=== PATIENT | female | born 1965 | race Caucasian/White ===

== ENCOUNTER 2019-07-26 12:44 | Emergency (ER) | payer BC, SELFPAY ==
[2019-07-26 12:59] VITALS: BP 148/78; PULSE 75; RESP 13; TEMP 36.6; O2SAT 99
[2019-07-26 13:23] LABS: Add Manual Diff / Slide Review NO; Basophils Absolute Auto 100 /uL (0-100); Eosinophils Absolute Auto 100 /uL (0-450); Eosinophils Percent Auto 1.7 % (2-4); Hematocrit 37.6 % (36-46); Hemoglobin 12.9 g/dL (12.0-16.0); Lymphocytes Absolute Auto 1400 /uL (1100-4500); Lymphocytes Percent Auto 17.6 % (25-40); Mean Corpuscular HGB Conc 34.3 % (30-36); Mean Corpuscular Hemoglobin 31.9 PG (26-34); Mean Corpuscular Volume 93.2 fL (80-100); Monocytes Absolute Auto 600 /uL (0-900); Monocytes Percent Auto 7.1 % (3-14); Neutrophils Absolute Auto 5700 /uL (1500-7000); Neutrophils Percent Auto 72.6 % (50-75); Platelet Count 291 X10^3/uL (150-400); Red Blood Cell Count 4.04 X10^6/uL (4.0-5.2); Red Cell Distribution Width 13.8 % (11.6-14.8); White Blood Cell Count 7.8 X10^3/uL (4.5-11.0)
[2019-07-26 13:36] LABS: Alanine Aminotransferase 37 IU/L (9-52); Albumin 4.7 g/dL (3.5-5.0); Albumin Globulin Ratio 1.4 (1.0-2.8); Alkaline Phosphatase 116 U/L (38-126); Aspartate Aminotransferase 41 IU/L (14-36); Bilirubin Total 0.5 mg/dL (0.2-1.3); Blood Urea Nitrogen 13 mg/dL (7-17); Calcium 9.5 mg/dL (8.4-10.2); Carbon Dioxide 26 mmol/L (22-32); Chloride 102 mmol/L (98-107); Estimated Glomerular Filt Rate > 60.0 mL/min (>60); Globulin 3.3 g/dL (1.7-4.1); Glucose 132 mg/dL (70-100); HEMOLYSIS 18 (0-50); Potassium 3.9 mmol/L (3.4-5.1); Sodium 140 mmol/L (137-145); Uric Acid 6.6 mg/dL (2.5-6.2)
[2019-07-26] MEDS: KETOROLAC 60 MG/2 ML VIAL IM (14:29)
--- NOTE | 2019-07-26 14:34 | PC.NURSE ---
pt declines ortho shoe
--- NOTE | 2019-07-26 15:47 | ED.LOWEXIN ---
HPI - Extremity Injury (Lower) <LOUISA Edmonds - Last Filed: 07/26/19 15:52> General Chief Complaint: Extremity Injury, Lower Stated Complaint: gout issues after a 4 ml hike Time Seen by Provider: 07/26/19 12:54 Source: patient Mode of arrival: wheelchair Limitations: no limitations History of Present Illness HPI Narrative: The patient is a 53-year-old female nonsmoker who presents with a chief complaint of left foot pain. She states she has a history of gout. She is visiting from [facility] in for got her gout medications in [facility]. She states it started 2 days ago after she went for for mi hike. She also notes that she has been drinking alcohol, eating lots of pork and not following dietary advice very well. She denies any fevers nausea vomiting diarrhea. She denies any trauma. She states that this is consistent with her previous gout. Related Data Home Medications Medication Instructions Recorded Confirmed Sertraline Hydrochloride (Zoloft) 100 mg PO Q DAY #0 06/23/09 gabapentin [Neurontin] 600 mg PO HS #0 06/23/09 Previous Rx's Medication Instructions Recorded colchicine See Rx Instructions .ROUTE 07/26/19 .COMPLEX #3 cap ketorolac 10 mg PO TID PRN #14 tab 07/26/19 prednisone 50 mg PO DAILY PRN #30 tab 07/26/19 Review of Systems <LOUISA Edmonds - Last Filed: 07/26/19 15:52> Review of Systems GENERAL: Denies chills, fatigue, malaise, fever, sweats. HEENT: Denies sinus pain, ear pain, sore throat, difficulty swallowing, dizziness. RESPIRATORY: Denies dyspnea, cough, wheezing, hemoptysis, sputum. CARDIOVASCULAR: Denies chest pain, palpitations, orthopnea, edema, GASTROINTESTINAL: Denies nausea, vomiting, abdominal pain, diarrhea, constipation, melena. : Denies dysuria, frequency, incontinence, hematuria, urinary retention. MUSCULOSKELETAL: See HPI SKIN: See HPI NEUROLOGIC: Denies weakness, headache, numbness, change in speech, confusion, seizures, incoordination. PSYCHIATRIC: No concerning psychosocial issues. 12 point review of systems is negative except for those stated above PFSH <LOUISA Edmonds - Last Filed: 07/26/19 15:52> Medical History (Updated 07/26/19 @ 15:49 by CIRO Edmonds) History of gout (Acute) Exam <CIRO Edmonds - Last Filed: 07/26/19 15:52> Narrative Exam Narrative: GENERAL: This is a well-nourished, well-developed patient, in no acute distress HEAD: Atraumatic. Normocephalic. No temporal or scalp tenderness. EYES: Pupils equal round and reactive. Extraocular motions intact. No scleral icterus. No injection or drainage. ENT: Nose without bleeding, purulent drainage or septal hematoma. Throat without erythema, tonsillar hypertrophy or exudate. Uvula midline. Airway patent. NECK: Trachea midline. No JVD or lymphadenopathy. Supple, nontender, no meningeal signs. CARDIOVASCULAR: Regular rate and rhythm RESPIRATORY: Clear to auscultation. Breath sounds equal bilaterally. No wheezes, rales, or rhonchi. No cough. No increased respiratory effort. GASTROINTESTINAL: Abdomen soft, non-tender, nondistended. No hepato-splenomegaly, or palpable masses. No guarding. EXTREMITIES: Pain to palpation left foot 1st great toe. Capillary refill less than 2 seconds. Able to flex and extend toe. Positive pedal pulses. BACK: Nontender without deformity or crepitance. No flank tenderness. NEURO: AOx3. SKIN: Erythema diffusely over 1st MTP of great toe of left foot. Warmth and painful to palpation. Nondiscrete. No laceration abrasion or open skin noted. Initial Vital Signs Initial Vital Signs: Vital Signs Temperature 97.8 F 07/26/19 12:59 Pulse Rate 75 07/26/19 12:59 Respiratory Rate 13 07/26/19 12:59 Blood Pressure 148/78 H 07/26/19 12:59 Pulse Oximetry 99 07/26/19 12:59 <Vandana Lopez DO - Last Filed: 07/29/19 00:12> Initial Vital Signs Initial Vital Signs: Vital Signs Temperature 97.8 F 07/26/19 12:59 Pulse Rate 75 07/26/19 12:59 Respiratory Rate 13 07/26/19 12:59 Blood Pressure 148/78 H 07/26/19 12:59 Pulse Oximetry 99 07/26/19 12:59 Course <CIRO Edmonds - Last Filed: 07/26/19 15:52> Orders Ordered: Discontinued Medications Ketorolac Tromethamine (Toradol) 60 mg IM NOW ONE Stop: 07/26/19 14:09 Last Admin: 07/26/19 14:29 Dose: 60 mg Vital Signs - 8 hr 07/26/19 12:59 Temperature 97.8 F Pulse Rate 75 Respiratory Rate 13 Blood Pressure 148/78 H Pulse Oximetry 99 <Vandana Lopez DO - Last Filed: 07/29/19 00:12> Orders Ordered: Discontinued Medications Ketorolac Tromethamine (Toradol) 60 mg IM NOW ONE Stop: 07/26/19 14:09 Last Admin: 07/26/19 14:29 Dose: 60 mg Vital Signs - 8 hr 07/26/19 12:59 Temperature 97.8 F Pulse Rate 75 Respiratory Rate 13 Blood Pressure 148/78 H Pulse Oximetry 99 MDM - Extremity Injury (Lower) <DENISA Edmonds-BC - Last Filed: 07/26/19 15:52> Lab Data Result diagrams: 07/26/19 13:12 07/26/19 13:12 Lab Results 07/26/19 07/26/19 Range/Units 13:12 13:12 WBC 7.8 (4.5-11.0) X10^3/uL RBC 4.04 (4.0-5.2) X10^6/uL Hgb 12.9 (12.0-16.0) g/dL Hct 37.6 (36-46) % MCV 93.2 (80-100) fL MCH 31.9 (26-34) PG MCHC 34.3 (30-36) % RDW 13.8 (11.6-14.8) % Plt Count 291 (150-400) X10^3/uL Neut % (Auto) 72.6 (50-75) % Lymph % (Auto) 17.6 L (25-40) % [place] % (Auto) 7.1 (3-14) % Eos % (Auto) 1.7 L (2-4) % Baso % (Auto) 1.0 (0-2) % Neut # (Auto) 5700 (9839-2769) /uL Lymph # (Auto) 1400 (2138-1339) /uL [place] # (Auto) 600 (0-900) /uL Eos # (Auto) 100 (0-450) /uL Baso # (Auto) 100 (0-100) /uL Sodium 140 (137-145) mmol/L Potassium 3.9 (3.4-5.1) mmol/L Chloride 102 (98-107) mmol/L Carbon Dioxide 26 (22-32) mmol/L BUN 13 (7-17) mg/dL Creatinine 0.50 L (0.52-1.04) mg/dL Estimated GFR > 60.0 (>60) mL/min BUN/Creatinine Ratio 26.0 H (6-22) Glucose 132 H (70-100) mg/dL Uric Acid 6.6 H (2.5-6.2) mg/dL Calcium 9.5 (8.4-10.2) mg/dL Total Bilirubin 0.5 (0.2-1.3) mg/dL AST 41 H (14-36) IU/L ALT 37 (9-52) IU/L Alkaline Phosphatase 116 (38-126) U/L Total Protein 8.0 (6.3-8.2) g/dL Albumin 4.7 (3.5-5.0) g/dL Globulin 3.3 (1.7-4.1) g/dL Albumin/Globulin Ratio 1.4 (1.0-2.8) MDM Narrative Medical decision making narrative: The patient is a 53-year-old female who presents with a chief complaint of ?I think I have gout.Her lab work correlates, no leukocytosis and an elevated uric acid. I placed her on colchicine, gave her prescription of Toradol as well as prednisone. Discussed at length avoiding alcohol, avoiding pork and other dietary triggers. Encouraged the patient to follow up with primary care provider. Discussed coming back to the ER for any acute concerns. The patient was offered a postoperative shoe to help facilitate ambulation, but she declined. She was also offered crutches in order to help keep weight off of her foot, but she also declined. I discussed at length coming back to emergency department for any acute concerns and suggested primary care follow-up. Also discussed not taking any other anti-inflammatories or NSAIDs with the Toradol such as Aleve Motrin etc <Vandana Lopez, - Last Filed: 08/28/19 00:12> Lab Data Lab Results 07/26/19 07/26/19 Range/Units 13:12 13:12 WBC 7.8 (4.5-11.0) X10^3/uL RBC 4.04 (4.0-5.2) X10^6/uL Hgb 12.9 (12.0-16.0) g/dL Hct 37.6 (36-46) % MCV 93.2 (80-100) fL MCH 31.9 (26-34) PG MCHC 34.3 (30-36) % RDW 13.8 (11.6-14.8) % Plt Count 291 (150-400) X10^3/uL Neut % (Auto) 72.6 (50-75) % Lymph % (Auto) 17.6 L (25-40) % [place] % (Auto) 7.1 (3-14) % Eos % (Auto) 1.7 L (2-4) % Baso % (Auto) 1.0 (0-2) % Neut # (Auto) 5700 (3556-4138) /uL Lymph # (Auto) 1400 (4595-0318) /uL [place] # (Auto) 600 (0-900) /uL Eos # (Auto) 100 (0-450) /uL Baso # (Auto) 100 (0-100) /uL Sodium 140 (137-145) mmol/L Potassium 3.9 (3.4-5.1) mmol/L Chloride 102 (98-107) mmol/L Carbon Dioxide 26 (22-32) mmol/L BUN 13 (7-17) mg/dL Creatinine 0.50 L (0.52-1.04) mg/dL Estimated GFR > 60.0 (>60) mL/min BUN/Creatinine Ratio 26.0 H (6-22) Glucose 132 H (70-100) mg/dL Uric Acid 6.6 H (2.5-6.2) mg/dL Calcium 9.5 (8.4-10.2) mg/dL Total Bilirubin 0.5 (0.2-1.3) mg/dL AST 41 H (14-36) IU/L ALT 37 (9-52) IU/L Alkaline Phosphatase 116 (38-126) U/L Total Protein 8.0 (6.3-8.2) g/dL Albumin 4.7 (3.5-5.0) g/dL Globulin 3.3 (1.7-4.1) g/dL Albumin/Globulin Ratio 1.4 (1.0-2.8) Discharge Plan Departure Patient Disposition: Home Clinical Impression: Gout attack Qualifiers: Gout site: foot Gout etiology: unspecified cause Laterality: left Qualified Code(s): M10.9 - Gout, unspecified Discharge Date/Time: 07/26/19 15:00 Interventions: ED Discharge Assessment Last Done: 07/26/19 15:00 Instructions: Gout (Alternative Therapy), DI for Gout, How To Perform RICE (Rest, Ice, Compress, Elevate), Higher Vitamin C Intake Associated With Lower Risk of Gout Activity Restrictions/Additional Instructions: Your blood level came back illustrated high uric acid, which combined with her exam indicates gout. I have given you prescriptions of colchicine, prednisone and ketorolac. Do not combine the ketorolac with any other NSAIDs such as ibuprofen or Aleve. Please follow up with primary care provider. Please come back to the emergency department for any acute concerns. I also suggest rest ice compression elevation. Prescriptions: New prednisone 50 mg tablet 50 mg PO DAILY PRN (Reason: pain) Qty: 30 RF: 0 colchicine 0.6 mg capsule See Rx Instructions .ROUTE .COMPLEX Qty: 3 RF: 0 ketorolac 10 mg tablet 10 mg PO TID PRN (Reason: pain) Qty: 14 RF: 0 No Action gabapentin [Neurontin] 600 MG tablet 600 mg PO HS Qty: 0 RF: 0 Sertraline Hydrochloride (Zoloft) 100 mg PO Q DAY Qty: 0 RF: 0 Referrals: Leticia Griffin PA-C [Primary Care Provider] - <Vandana Lopez DO - Last Filed: 07/29/19 00:12> Cosign ED Attending Jenni Attestation: I was immediately available in the department for consultation. Documentation has been reviewed. I agree with assessment and plan.
--- NOTE | 2019-07-26 15:52 | ED_ITS ---
HPI - Extremity Injury (Lower) <LOUISA Edmonds - Last Filed: 07/26/19 15:52> General Chief Complaint: Extremity Injury, Lower Stated Complaint: gout issues after a 4 ml hike Time Seen by Provider: 07/26/19 12:54 Source: patient Mode of arrival: wheelchair Limitations: no limitations History of Present Illness HPI Narrative: The patient is a 53-year-old female nonsmoker who presents with a chief complaint of left foot pain. She states she has a history of gout. She is visiting from [facility] in for got her gout medications in [facility]. She states it started 2 days ago after she went for for mi hike. She also notes that she has been drinking alcohol, eating lots of pork and not following dietary advice very well. She denies any fevers nausea vomiting diarrhea. She denies any trauma. She states that this is consistent with her previous gout. Related Data Home Medications Medication Instructions Recorded Confirmed Sertraline Hydrochloride (Zoloft) 100 mg PO Q DAY #0 06/23/09 gabapentin [Neurontin] 600 mg PO HS #0 06/23/09 Previous Rx's Medication Instructions Recorded colchicine See Rx Instructions .ROUTE 07/26/19 .COMPLEX #3 cap ketorolac 10 mg PO TID PRN #14 tab 07/26/19 prednisone 50 mg PO DAILY PRN #30 tab 07/26/19 Review of Systems <LOUISA Edmonds - Last Filed: 07/26/19 15:52> Review of Systems GENERAL: Denies chills, fatigue, malaise, fever, sweats. HEENT: Denies sinus pain, ear pain, sore throat, difficulty swallowing, dizziness. RESPIRATORY: Denies dyspnea, cough, wheezing, hemoptysis, sputum. CARDIOVASCULAR: Denies chest pain, palpitations, orthopnea, edema, GASTROINTESTINAL: Denies nausea, vomiting, abdominal pain, diarrhea, constip ation, melena. : Denies dysuria, frequency, incontinence, hematuria, urinary retention. MUSCULOSKELETAL: See HPI SKIN: See HPI NEUROLOGIC: Denies weakness, headache, numbness, change in speech, confusion, seizures, incoordination. PSYCHIATRIC: No concerning psychosocial issues. 12 point review of systems is negative except for those stated above PFSH <LOUISA Edmonds - Last Filed: 07/26/19 15:52> Medical History (Updated 07/26/19 @ 15:49 by CIRO Edmonds) History of gout (Acute) Exam <CIRO Edmonds - Last Filed: 07/26/19 15:52> Narrative Exam Narrative: GENERAL: This is a well-nourished, well-developed patient, in no acute distress HEAD: Atraumatic. Normocephalic. No temporal or scalp tenderness. EYES: Pupils equal round and reactive. Extraocular motions intact. No scleral icterus. No injection or drainage. ENT: Nose without bleeding, purulent drainage or septal hematoma. Throat without erythema, tonsillar hypertrophy or exudate. Uvula midline. Airway patent. NECK: Trachea midline. No JVD or lymphadenopathy. Supple, nontender, no meningeal signs. CARDIOVASCULAR: Regular rate and rhythm RESPIRATORY: Clear to auscultation. Breath sounds equal bilaterally. No wheezes, rales, or rhonchi. No cough. No increased respiratory effort. GASTROINTESTINAL: Abdomen soft, non-tender, nondistended. No hepato- splenomegaly, or palpable masses. No guarding. EXTREMITIES: Pain to palpation left foot 1st great toe. Capillary refill less than 2 seconds. Able to flex and extend toe. Positive pedal pulses. BACK: Nontender without deformity or crepitance. No flank tenderness. NEURO: AOx3. SKIN: Erythema diffusely over 1st MTP of great toe of left foot. Warmth and painful to palpation. Nondiscrete. No laceration abrasion or open skin noted. Initial Vital Signs Initial Vital Signs: Vital Signs Temperature 97.8 F 07/26/19 12:59 Pulse Rate 75 07/26/19 12:59 Respiratory Rate 13 07/26/19 12:59 Blood Pressure 148/78 H 07/26/19 12:59 Pulse Oximetry 99 07/26/19 12:59 <Vandana Lopez DO - Last Filed: 07/29/19 00:12> Initial Vital Signs Initial Vital Signs: Vital Signs Temperature 97.8 F 07/26/19 12:59 Pulse Rate 75 07/26/19 12:59 Respiratory Rate 13 07/26/19 12:59 Blood Pressure 148/78 H 07/26/19 12:59 Pulse Oximetry 99 07/26/19 12:59 Course <CIRO Edmonds - Last Filed: 07/26/19 15:52> Orders Ordered: Discontinued Medications Ketorolac Tromethamine (Toradol) 60 mg IM NOW ONE Stop: 07/26/19 14:09 Last Admin: 07/26/19 14:29 Dose: 60 mg Vital Signs - 8 hr 07/26/19 12:59 Temperature 97.8 F Pulse Rate 75 Respiratory Rate 13 Blood Pressure 148/78 H Pulse Oximetry 99 <Vandana Lopez DO - Last Filed: 07/29/19 00:12> Orders Ordered: Discontinued Medications Ketorolac Tromethamine (Toradol) 60 mg IM NOW ONE Stop: 07/26/19 14:09 Last Admin: 07/26/19 14:29 Dose: 60 mg Vital Signs - 8 hr 07/26/19 12:59 Temperature 97.8 F Pulse Rate 75 Respiratory Rate 13 Blood Pressure 148/78 H Pulse Oximetry 99 MDM - Extremity Injury (Lower) <DENISA Edmonds-BC - Last Filed: 07/26/19 15:52> Lab Data Result diagrams: 07/26/19 13:12 07/26/19 13:12 Lab Results 07/26/19 07/26/19 Range/Units 13:12 13:12 WBC 7.8 (4.5-11.0) X10^3/uL RBC 4.04 (4.0-5.2) X10^6/uL Hgb 12.9 (12.0-16.0) g/dL Hct 37.6 (36-46) % MCV 93.2 (80-100) fL MCH 31.9 (26-34) PG MCHC 34.3 (30-36) % RDW 13.8 (11.6-14.8) % Plt Count 291 (150-400) X10^3/uL Neut % (Auto) 72.6 (50-75) % Lymph % (Auto) 17.6 L (25-40) % [place] % (Auto) 7.1 (3-14) % Eos % (Auto) 1.7 L (2-4) % Baso % (Auto) 1.0 (0-2) % Neut # (Auto) 5700 (5257-6863) /uL Lymph # (Auto) 1400 (6376-1777) /uL [place] # (Auto) 600 (0-900) /uL Eos # (Auto) 100 (0-450) /uL Baso # (Auto) 100 (0-100) /uL Sodium 140 (137-145) mmol/L Potassium 3.9 (3.4-5.1) mmol/L Chloride 102 (98-107) mmol/L Carbon Dioxide 26 (22-32) mmol/L BUN 13 (7-17) mg/dL Creatinine 0.50 L (0.52-1.04) mg/dL Estimated GFR > 60.0 (>60) mL/min BUN/Creatinine Ratio 26.0 H (6-22) Glucose 132 H (70-100) mg/dL Uric Acid 6.6 H (2.5-6.2) mg/dL Calcium 9.5 (8.4-10.2) mg/dL Total Bilirubin 0.5 (0.2-1.3) mg/dL AST 41 H (14-36) IU/L ALT 37 (9-52) IU/L Alkaline Phosphatase 116 (38-126) U/L Total Protein 8.0 (6.3-8.2) g/dL Albumin 4.7 (3.5-5.0) g/dL Globulin 3.3 (1.7-4.1) g/dL Albumin/Globulin Ratio 1.4 (1.0-2.8) MDM Narrative Medical decision making narrative: The patient is a 53-year-old female who presents with a chief complaint of ?I think I have gout.Her lab work correlates, no leukocytosis and an elevated uric acid. I placed her on colchicine, gave her prescription of Toradol as well as prednisone. Discussed at length avoiding alcohol, avoiding pork and other dietary triggers. Encour aged the patient to follow up with primary care provider. Discussed coming back to the ER for any acute concerns. The patient was offered a postoperative shoe to help facilitate ambulation, but she declined. She was also offered crutches in order to help keep weight off of her foot, but she also declined. I discussed at length coming back to emergency department for any acute concerns and suggested primary care follow-up. Also discussed not taking any other anti- inflammatories or NSAIDs with the Toradol such as Aleve Motrin etc <Vandana Lopez, - Last Filed: 07/29/19 00:12> Lab Data Lab Results 07/26/19 07/26/19 Range/Units 13:12 13:12 WBC 7.8 (4.5-11.0) X10^3/uL RBC 4.04 (4.0-5.2) X10^6/uL Hgb 12.9 (12.0-16.0) g/dL Hct 37.6 (36-46) % MCV 93.2 (80-100) fL MCH 31.9 (26-34) PG MCHC 34.3 (30-36) % RDW 13.8 (11.6-14.8) % Plt Count 291 (150-400) X10^3/uL Neut % (Auto) 72.6 (50-75) % Lymph % (Auto) 17.6 L (25-40) % [place] % (Auto) 7.1 (3-14) % Eos % (Auto) 1.7 L (2-4) % Baso % (Auto) 1.0 (0-2) % Neut # (Auto) 5700 (4271-8264) /uL Lymph # (Auto) 1400 (2267-2833) /uL [place] # (Auto) 600 (0-900) /uL Eos # (Auto) 100 (0-450) /uL Baso # (Auto) 100 (0-100) /uL Sodium 140 (137-145) mmol/L Potassium 3.9 (3.4-5.1) mmol/L Chloride 102 (98-107) mmol/L Carbon Dioxide 26 (22-32) mmol/L BUN 13 (7-17) mg/dL Creatinine 0.50 L (0.52-1.04) mg/dL Estimated GFR > 60.0 (>60) mL/min BUN/Creatinine Ratio 26.0 H (6-22) Glucose 132 H (70-100) mg/dL Uric Acid 6.6 H (2.5-6.2) mg/dL Calcium 9.5 (8.4-10.2) mg/dL Total Bilirubin 0.5 (0.2-1.3) mg/dL AST 41 H (14-36) IU/L ALT 37 (9-52) IU/L Alkaline Phosphatase 116 (38-126) U/L Total Protein 8.0 (6.3-8.2) g/dL Albumin 4.7 (3.5-5.0) g/dL Globulin 3.3 (1.7-4.1) g/dL Albumin/Globulin Ratio 1.4 (1.0-2.8) Discharge Plan Departure Patient Disposition: Home Clinical Impression: Gout attack Qualifiers: Gout site: foot Gout etiology: unspecified cause Laterality: left Qualified Code(s): M10.9 - Gout, unspecified Discharge Date/Time: 07/26/19 15:00 Interventions: ED Discharge Assessment Last Done: 07/26/19 15:00 Instructions: Gout (Alternative Therapy), DI for Gout, How To Perform RICE (Rest, Ice, Compress, Elevate), Higher Vitamin C Intake Associated With Lower Risk of Gout Activity Restrictions/Additional Instructions: Your blood level came back illustrated high uric acid, which combined with her exam indicates gout. I have given you prescriptions of colchicine, prednisone and ketorolac. Do not combine the ketorolac with any other NSAIDs such as ibuprofen or Aleve. Please follow up with primary care provider. Please come back to the emergency department for any acute concerns. I also suggest rest ice compression elevation. Prescriptions: New prednisone 50 mg tablet 50 mg PO DAILY PRN (Reason: pain) Qty: 30 RF: 0 colchicine 0.6 mg capsule See Rx Instructions .ROUTE .COMPLEX Qty: 3 RF: 0 ketorolac 10 mg tablet 10 mg PO TID PRN (Reason: pain) Qty: 14 RF: 0 No Action gabapentin [Neurontin] 600 MG tablet 600 mg PO HS Qty: 0 RF: 0 Sertraline Hydrochloride (Zoloft) 100 mg PO Q DAY Qty: 0 RF: 0 Referrals: Leticia Griffin PA-C [Primary Care Provider] - <Vandana Lopez DO - Last Filed: 07/29/19 00:12> Cosign ED Attending Jenni Attestation: I was immediately available in the department for consultation. Documentation has been reviewed. I agree with assessment and plan.
== END 2019-07-26 15:00 | disposition home or self-care (01) ==
PROVIDERS: Emergency Provider Nurse Practitioner Family; PCP Physician Assistant Medical
DX: M10.9 Gout, unspecified (principal)
CPT/HCPCS: 36415; 80053; 84550; 85025; 96372; 99282; 99283; J1885